=== PATIENT | male | born 1975 | race Caucasian/White ===

== ENCOUNTER 2017-09-30 12:00 | Emergency (ER) | payer OTHER ==
[2017-09-30 12:13] VITALS: BP 140/88
[2017-09-30] MEDS ORDERED: LIDOCAINE 2%-EPI 1:100000 20 ML MDV ONE (12:54)
[2017-09-30] MEDS ORDERED: SODIUM BICARBONATE ABBOJECT 50 MEQ/50 ML SYRINGE ONE (12:55)
--- NOTE | 2017-09-30 13:04 | ED Physician Documentation ---
PD HPI LOWER EXT INJURY - Stated complaint Stated Complaint: LEG LAC - Chief complaint Chief Complaint: Ext Problem - History obtained from History obtained from: Patient - History of Present Illness PD HPI LOW EXT INJURY LOCATION: Other (Active duty and up-to-date on tetanus, he was chain sawing wood at home and it kicked back and he has lacerations on both legs. No other injuries.) Review of Systems Constitutional: reports: Reviewed and negative Cardiac: reports: Reviewed and negative Respiratory: reports: Reviewed and negative PD PAST MEDICAL HISTORY - Past Surgical History Past Surgical History: No - Present Medications Home Medications: Ambulatory Orders Medication Instructions Recorded Confirmed No Known Home Medications [No 07/26/14 07/26/14 Known Home Medications] - Allergies Allergies/Adverse Reactions: Allergies Allergy/AdvReac Type Severity Reaction Status Date / Time No Known Drug Allergies Allergy Verified 07/26/14 14:35 - Social History Does the pt smoke?: No Smoking Status: Never smoker Does the pt drink ETOH?: No Does the pt have substance abuse?: No - Immunizations Immunizations are current?: Yes Immunizations: TDAP current <10years - POLST Patient has POLST: No PD ED PE NORMAL - Vitals Vital signs reviewed: Yes - General General: Alert and oriented X 3, No acute distress - Extremities Extremities: Other (On the right calf there is a long abrasion with a small area of laceration measuring about 2 cm. It is just in the subcutaneous fat. On the left medial thigh there are 3x 5 cm lacerations Paralleling each other, just into subcutaneous fat, they are approximately 6 mm apart.) - Neuro Neuro: Alert and oriented X 3, Normal speech Results - Vitals Vitals: Vital Signs - 24 hr 09/30/17 12:08 Temperature 36.2 C L Heart Rate 70 Respiratory 15 Rate Blood Pressure 140/88 H O2 Saturation 100 Oxygen O2 Source Room air Procedures - Laceration (location) Right calf Length in cm: 2 Wound type: Linear Anesthesia: Lidocaine 2%, With bicarb Wound Preparation: Betadine, Irrigated copiously NS Skin layer closure: Larry (3) Other: Tetanus UTD Complexity: Simple Left medial thigh Length in cm: 15 Wound type: Linear (3 lacerations, each 5 cm in length, parallel in orientation , just into subcutaneous fat) Anesthesia: Lidocaine 2%, With bicarb Wound Preparation: Betadine, Irrigated copiously NS Skin layer closure: [place], Other (The wounds were just far enough apart that I was able to staple each laceration separately with a skin bridge between them. ) Other: Tetanus UTD Complexity: Simple Departure - Departure Disposition: 01 Home, Self Care Clinical Impression: Laceration of right leg excluding thigh Qualifiers: Encounter type: initial encounter Qualified Code(s): S81.811A - Laceration without foreign body, right lower leg, initial encounter Laceration of left thigh Qualifiers: Encounter type: initial encounter Qualified Code(s): S71.112A - Laceration without foreign body, left thigh, initial encounter Condition: Good Record reviewed to determine appropriate education?: Yes Instructions: ED Laceration Ext Sutr Stap Tape Comments: Come back for any signs of infection which would include: Redness, swelling, drainage, increased pain, or fevers. Follow-up with your physician in about 10 days for suture removal. Your blood pressure was elevated today on check into the emergency department. This does not mean that you have hypertension, it is a common phenomenon to come to the emergency department and have elevated blood pressure. I recommend that you see your primary care physician within the week to have it rechecked when you are feeling better.
== END 2017-09-30 13:16 | disposition home or self-care (01) ==
LOC: ED 12:00
DX: S71.112A Laceration without foreign body, left thigh, initial encounter (principal); S81.811A Laceration without foreign body, right lower leg, initial encounter; W29.3XXA Contact with powered garden and outdoor hand tools and machinery, initial encounter; Y92.017 Garden or yard in single-family (private) house as the place of occurrence of the external cause; R03.0 Elevated blood-pressure reading, without diagnosis of hypertension
CPT/HCPCS: 12002; 12005; 99282; 99283

== ENCOUNTER 2021-04-07 09:07 | Outpatient (CLI) | payer OTHER ==
--- NOTE | 2021-04-07 10:02 | SLEEP CARE CONSULTATION ---
Information from patient questionnaire entered by Prema Grubbs. I have reviewed and concur with the information entered by Prema Grubbs. This document represents the service I personally performed and the decisions made by me, Sissy Leone ARNP. History of Present Illness Service Date and Time: 04/07/2021 0907 Reason for Visit: New patient, Previously diagnosed sleep apnea (mild - AHI - 13.7 in 2013; Very Severe - AHI - 62.8 in 2012), sleep apnea on CPAP therapy ([facility]), Re-establish care (last seen 2014) Chief Complaint: reports: Unrefreshed sleep, Snoring, Excessive daytime sleepiness, Observed pauses in breathing, Fatigue, Frequent awakenings at night, Other (update supplies) Date of Onset: 10 plus years Usual bedtime: 11 pm Time it takes to fall asleep: 10 min Snores at night: Yes Observed to quit breathing while asleep: Yes Sleeps alone due to snoring: No Number of times waking at night: none with CPAP Reasons for waking at night: reports: Gasping for air Toss, Turn, or Twitch while sleeping: No Recalls having dreams: Yes Usually gets out of bed at: 6 am Feels refreshed in the morning: Yes (with CPAP) Morning headache: No Sleepy or fatigued during the day: No (with CPAP) Ever fallen asleep while driving: No Takes day naps: No Dreams during day naps: No Prior sleep studies: Yes Year and Where: 2013 and 2012 - [facility]; 2004 - [facility] Type of Sleep Study: Polysomnography Additional HPI information: TAD MCKNIGHT was diagnosed to have mild, AHI 13.7 (2013), very severe 62.8 (2012), obstructive sleep apnea-hypopnea syndrome and comes in today to re- establish care for CPAP therapy. - Parasomnia Symptoms Ever been unable to move upon waking from sleep: Yes Walks in sleep: No Talks in sleep: Yes Ever acted out dreams in sleep: No Ever felt weak in the knees when startled or emotional: No Bothered by creepy, crawly, restless sensations in legs: No Problems with memory or concentration: No CPAP Compliance Data - Data Reviewed with Patient Average duration of nightly device use: 6 hours 37 minutes Compliance rate %: 96 Current pressure setting (cmH2O): 10 Average residual AHI: 2.4 Compliance data discussion: He has been using it nightly. He is getting his supplies from [employer] and gets them as needed. His machine is having an issue with the power connection is shorting our and will sometimes not work. This has been going on for about 2 months. 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 He is using a Dreamwear nasal cushion mask. He last changes them at the first of the month. Subjective Patient concerns: denies: aerophagia, mask discomfort, air blowing in eyes, mask leak noise, condensation in mask/hose, nasal congestion, dry mouth, nose, throat, epistaxis, other Observed to snore while using device: No Current pressure setting perceived as: too low On therapy, patient: reports: sleeping better, awakening more refreshed, being more awake and alert during the day, more rested overall. denies: drowsiness while driving Initial [place] Sleepiness Scale score: 12 (in 2012) Current [place] Sleepiness Scale score: 13 Past Medical History Past Medical History: reports: Anxiety Social History The patient's occupation is a Active . Patient is and lives in [place]. Have you smoked in the past 12 months: No Alcohol use: No Caffeine use: Yes Caffeine amount and frequency: 2 drinks per day Family History Family history of sleep disordered breathing: Yes Family Hx Sleep Apnea: Father: Snoring, Sleep apnea - Untreated Allergies and Home Medications Drug allergies reviewed: Yes (NKDA) Home medication list reviewed: Yes Allergy and home medication list: Ibuprofen, as needed Review of Systems Cardiovascular: denies: high blood pressure Gastrointestinal: denies: heartburn Neurological: denies: headaches Psychiatric: reports: anxiety Ear/Nose/Throat: reports: wisdom teeth removed. denies: tonsillectomy Immunologic: denies: allergies to food or environment Physical Exam Heart Rate: 69 O2 Saturation: 98 Height: 6 ft 2 in Weight: 281 lb Body Mass Index: 36.1 BMI Classification: Obese Impression and Plan 1. Obstructive Sleep Apnea-Hypopnea Syndrome, mild (2013)/very severe (2012), with unknown treatment compliance and unknown apnea control. On CPAP therapy, the patient has better sleep quality and is more rested overall. He thinks his current pressure setting is at 10 cmH2O and feels this is a little too low. He is very satisfied with his treatment overall. He did not bring in his data chip for download of his compliance report. He will go home now an bring this in so we can verify compliance and control. He states he has no issues with CPAP mask use and uses it nightly. He does not like to sleep without it. His current machine has a power cord problem. He has been having to jiggle the plug into the machine to get it to turn on several times in the last 2 months. The patients CPAP is over 5 years old and of reasonable use. In addition, it is starting to not turn on until moving the plug in on the machine, a sign of malfunction. Thus, the CPAP will be updated. The patient would also like to get a prescripti on to get a portable CPAP for use on deployment. A O prescription will be made for updating his machine and the portable machine. Compliance guidelines for new device and follow up discussed. Patient's apnea severity and rationale for treatment to reduce apnea, improve sleep quality and reduce cardiovascular and cerebrovascular events was reviewed. * Obtain compliance information to verify compliance prior to sending prescriptions * Update machine and supplies * Portable CPAP machine * Notify me if snoring with mask or feeling that the pressure is too much or too little * Attempt to lose weight * Call this office if any problems using CPAP * Return for follow up one month after getting new machine, or sooner if concerns arise Addendum: Patient brought in compliance information. He is 96% compliant with a residual AHI of 2.4. I will increase his pressure setting to [id number] since he feels the pressure is too low. I will order his new machine and follow up with him a month after using the new machine. Prescription for portable CPAP given to patient. Counseling Topics: Weight loss health impact Visit Type: In Office Time Spent with Patient (minutes): 32 Provider Statement: I spent 100% of the Face to Face Visit with the patient with greater than 50% spent counseling the patient and coordination of care.
== END 2021-04-07 09:08 | disposition home or self-care (01) ==
LOC: SC 09:07
PROVIDERS: ATTEND Nurse Practitioner Family
DX: G47.33 Obstructive sleep apnea (adult) (pediatric) (principal); E66.9 Obesity, unspecified; Z68.36 Body mass index [BMI] 36.0-36.9, adult
CPT/HCPCS: 99203; 99212

== ENCOUNTER 2021-06-09 09:04 | Outpatient (CLI) | payer OTHER ==
--- NOTE | 2021-06-09 09:23 | SLEEP CARE CONSULTATION ---
Information from patient questionnaire entered by Leana Hickey. I have reviewed and concur with the information entered by Leana Hickey. This document represents the service I personally performed and the decisions made by me, Sissy Leone ARNP. History of Present Illness Service Date and Time: 06/09/2021 0904 Previous diagnosis: Mild, Obstructive Sleep Apnea-Hypopnea Syndrome AHI: 13.7 ((62.8 in 2013) Reason for follow up: first compliance (Set up 04/17?), first compliance after device update Equipment obtained from: Other ([employer]; good so far) Mask style: Nasal Mask brand: Respironics (Dreamwear) Backup mask available: Yes (old mask) Last cushion change: 3 weeks ago Prior sleep studies: Yes Year and Where: 2013 and 2012 - [facility]; 2004 - [facility] Type of Sleep Study: Polysomnography HPI additional information: TAD MCKNIGHT was diagnosed to have mild, AHI 13.7, obstructive sleep apnea- hypopnea syndrome and returned today for CPAP therapy first compliance after updating device follow-up. CPAP Compliance Data - Data Reviewed with Patient Average duration of nightly device use: 7 h 14 min Compliance rate %: 97 Current pressure setting (cmH2O): 10 Average residual AHI: 2.1 Central apnea: 0.2 Obstructive apnea: 1.1 Subjective Patient concerns: denies: aerophagia, mask discomfort, air blowing in eyes, mask leak noise, condensation in mask/hose, nasal congestion, dry mouth, nose, throat, epistaxis, other Observed to snore while using device: No Current pressure setting perceived as: comfortable On therapy, patient: reports: sleeping better, awakening more refreshed, being more awake and alert during the day, more rested overall. denies: drowsiness while driving Initial [place] Sleepiness Scale score: 12 (in 2013) Current [place] Sleepiness Scale score: 6 Allergies and Home Medications Home medication list reviewed: Yes (no changes) Review of Systems Review of systems same as previous: Yes (no changes) Physical Exam Heart Rate: 69 O2 Saturation: 96 Height: 6 ft 2 in Weight: 261 lb Body Mass Index: 33.5 BMI Classification: Obese Impression and Plan 1. Obstructive Sleep Apnea-Hypopnea Syndrome, mild, with good treatment compliance and good apnea control. On CPAP therapy, the patient has better sleep quality and is more rested overall. Patient is happy with his new machine and satisfied with his current therapy. He intends to continue his CPAP therapy long-term. Patient is overweight and states he is trying to exercise and watch what he eats to lose weight. I encouraged him to continue to eat nutritionally rich foods like fruits, vegetables and whole grains and stay away from processed and packaged foods. He voiced understanding. Patient's apnea severity and rationale for treatment to reduce apnea, improve sleep quality and reduce cardiovascular and cerebrovascular events was reviewed. He has a history of anxiety. * Continue auto CPAP pressure at 10 cmH2O * Notify me if snoring with mask or feeling that the pressure is too much or too little * Attempt to lose weight * Call this office if any problems using CPAP * Return for follow up in 1 year, or sooner if concerns arise Counseling Topics: Spare mask, Weight loss health impact Visit Type: In Office Time Spent with Patient (minutes): 11 Provider Statement: I spent 100% of the Face to Face Visit with the patient with greater than 50% spent counseling the patient and coordination of care.
== END 2021-06-09 09:05 | disposition home or self-care (01) ==
LOC: SC 09:04
PROVIDERS: ATTEND Nurse Practitioner Family
DX: G47.33 Obstructive sleep apnea (adult) (pediatric) (principal); E66.9 Obesity, unspecified; Z68.33 Body mass index [BMI] 33.0-33.9, adult
CPT/HCPCS: 99212

== ENCOUNTER 2023-09-16 15:31 | Outpatient (CLI) | payer OTHER ==
--- NOTE | 2023-09-16 16:09 | Sleep Patient Instructions ---
Sleep Center Visit Summary - Patient Visit Information Reason for Visit: Annual visit - Patient Instructions Additional Instructions: You will continue with CPAP therapy with pressure set at 11 cmH2O. A supply prescription will be updated with your DME. We encourage you to continue to try to lose weight. Please follow up with the sleep care office in 1 year. - Clinic Information Contact: [facility] [address] [place] [address] [email or web address] T: [phone]
--- NOTE | 2023-09-16 16:13 | SLEEP CARE CONSULTATION ---
Information from patient questionnaire entered by Kirby Connor. I have reviewed and concur with the information entered by Kirby Connor. This document represents the service I personally performed and the decisions made by me, Sissy Leone ARNP. History of Present Illness Service Date and Time: 09/16/2023 1531 Previous diagnosis: Mild, Obstructive Sleep Apnea-Hypopnea Syndrome AHI: 13.7 ((62.8 in 2013) Reason for follow up: annual (LAST SEEN 05/2021) Equipment type: CPAP (ResMed Airsense 10; Dreamstation 2; SD CARD NEEDED) Equipment obtained from: Other ([employer]; getting supplies) Mask style: Nasal Mask brand: Respironics Backup mask available: Yes Last cushion change: once a month Prior sleep studies: Yes Year and Where: 2013 and 2012 - [facility]; 2004 - [facility] Type of Sleep Study: Polysomnography HPI additional information: TAD MCKNIGHT was diagnosed to have mild, AHI 13.7, obstructive sleep apnea- hypopnea syndrome and returned today for CPAP therapy annual follow-up. Sleep Study - Results Type of Sleep Study: Polysomnography Prior sleep studies: Yes Year and Where: 2013 and 2012 - [facility]; 2004 - [facility] CPAP Compliance Data - Data Reviewed with Patient Average duration of nightly device use: 6 hours 41 minutes Compliance rate %: 49 (86/365 days used for RESMED) Current pressure setting (cmH2O): 11 Average residual AHI: 1.5 Compliance data discussion: He uses a ResMed Airsense 10 when he is working remotely. He has a Dreamstation 2 that he used most of last year until he started working remotely. He uses the Dreamstation 2 when he is at home. ON his Dreamstation 2: 5:46 hours used, 282/365 days used; 75% compliance and residual AHI of 2.6. Subjective Missed days of use due to: reports: other (uses two different machines) Patient concerns: denies: aerophagia, mask discomfort, air blowing in eyes, mask leak noise, condensation in mask/hose, nasal congestion, dry mouth, nose, throat, epistaxis Observed to snore while using device: No Current pressure setting perceived as: comfortable On therapy, patient: reports: sleeping better, awakening more refreshed, being more awake and alert during the day, more rested overall. denies: drowsiness while driving Initial [place] Sleepiness Scale score: 12 (in 2013) Current [place] Sleepiness Scale score: 12 (09/16/23) Allergies and Home Medications Known drug allergies: No Drug allergies reviewed: Yes Home medication list reviewed: Yes (no changes) Allergy and home medication list: Allergies No Known Drug Allergies Allergy (Verified 09/15/23 14:12) Review of Systems Review of systems same as previous: Yes (NO CHANGE) Physical Exam Vital signs obtained and entered by: KIRBY Garcia MA Blood Pressure: 128/76 (LEFT ARM) Cuff size: regular Heart Rate: 71 O2 Saturation: 98 Height: 6 ft 2 in Weight: 264 lb Body Mass Index: 33.9 BMI Classification: Obese Impression and Plan 1. Obstructive Sleep Apnea-Hypopnea Syndrome, mild, with good treatment compliance and good apnea control. On CPAP therapy, the patient has better sleep quality and is more rested overall. Patient has 2 CPAP's with him today. His main CPAP is the DreamStation 2. He uses the [employer] [place] air sense 10 when he is working remotely for his job. He uses his machine every night, says he cannot sleep without it. He definitely has good treatment compliance. Patient has significant improvement of their sleep apnea and is satisfied with current CPAP therapy. Patient denies problems with oral dryness, nasal congestion, epistaxis, skin irritation or aerophagia. Patient's apnea severity and rationale for treatment to reduce apnea, improve sleep quality and reduce cardiovascular and cerebrovascular events was reviewed. I also reviewed the benefit of consistent device use of CPAP for anxiety. 2. Obesity, unspecified. Currently patients BMI is 33.9. Obesity increases the risk of apnea, CPAP pressure requirements and overall health risks especially cardiovascular and diabetes. Thus patient is advised to lose weight. * Continue CPAP pressure at 11 cmH2O * Update supply prescription * Notify me if snoring with mask or feeling that the pressure is too much or too little * Attempt to lose weight * Call this office if any problems using CPAP * Return for follow up in 1 year, or sooner if concerns arise Counseling Topics: Spare mask, Weight loss health impact Prescriptions: Device supplies Visit Type: In Office Time Spent with Patient (minutes): 22 Provider Statement: I spent 100% of the Face to Face Visit with the patient with greater than 50% spent counseling the patient and coordination of care.
[2023-09-16 16:14] VITALS: BP 128/76; O2SAT 98
== END 2023-09-16 15:32 | disposition home or self-care (01) ==
LOC: SC 15:31
PROVIDERS: ATTEND Nurse Practitioner Family
DX: G47.33 Obstructive sleep apnea (adult) (pediatric) (principal); E66.9 Obesity, unspecified; Z68.33 Body mass index [BMI] 33.0-33.9, adult
CPT/HCPCS: 99212; 99213